=== PATIENT | male | born 1975 | race Caucasian/White ===

== ENCOUNTER 2021-04-09 18:00 | Emergency (ER) | payer BC, SELFPAY ==
[2021-04-09 18:03] VITALS: BP 125/80; PULSE 66; RESP 12; TEMP 36.7; O2SAT 98; BMI 22.4
--- NOTE | 2021-04-09 18:07 | DI.RAD.S_ITS ---
PROCEDURE: XR SHOULDER RT MIN 2V INDICATIONS: fall, concerns of seperation. Swelling/pain TECHNIQUE: 3 views of the shoulder were acquired. COMPARISON: None. FINDINGS: Bones: No acute fractures or dislocations. No suspicious bony lesions. Visualized ribs appear intact. Soft tissues: No suspicious soft tissue calcifications. IMPRESSION: No acute osseous abnormality. If clinical suspicion and/or symptoms persist, additional imaging with repeat plain films, or advanced imaging (e.g. CT, MRI) may be helpful for further assessment. Dictated by: Buddy Edwards M.D. on 04/09/2021 at 18:33 Approved by: Buddy Edwards M.D. on 04/09/2021 at 18:34
--- NOTE | 2021-04-09 19:24 | ED_ITS ---
HPI - Extremity Injury (Upper) General Chief Complaint: Extremity Injury, Upper Stated Complaint: MIGHT OF LEFT SHOULDER Time Seen by Provider: 04/09/21 19:24 Source: patient Mode of arrival: Ambulatory Limitations: no limitations History of Present Illness HPI narrative: This is a 45-year-old male with complaint or concern for possibly injured his right shoulder. Patient was hiking, he tripped and went to protect his left arm which he had a series fracture in the past and fell onto his right shoulder almost directly onto the shoulder itself. He indicates he has pain at the AC joint. He has increased pain with flexion at the shoulder extension is not as uncomfortable and internal external rotation well uncomfortable is not as sick significant as flexion. Patient does not appreciate significant weakness although he is actually more weak on his left upper extremity secondary to his prior injury. He has chronic radiculopathy in both upper extremities prior to chronic neck pain as well as his left forearm injury. Patient has had surgery on his left forearm. He has not had any prior injuries to the right shoulder. Patient states that he does take meloxicam daily. He asks Related Data Home Medications Medication Instructions Recorded Confirmed acetaminophen 650 mg 650 mg PO Q8H PRN tab 12/19/20 12/19/20 tablet,extended release Previous Rx's Medication Instructions Recorded oxycodone 5 mg PO Q6H PRN #10 tab 04/09/21 Allergies Allergy/AdvReac Type Severity Reaction Status Date / Time No Known Drug Allergies Allergy Verified 04/09/21 18:06 Review of Systems Review of Systems ROS Unobtainable: All systems reviewed & are unremarkable except as noted in HPI and below Patient History Social History Smoking Status: Never smoker Smoking Status: Never smoker alcohol intake frequency: a few times a month Substance Use Type: does not use Exam Narrative Exam Narrative: GENERAL: Alert and oriented x three, well-nourished, well- appearing male HEENT: Head normocephalic, atraumatic, EOMI, pupils reactive, face symmetric, moist mucous membranes NECK: Supple, full range of motion CARDIOVASCULAR: Regular rate and rhythm without murmurs, rubs or gallops. RESPIRATORY: Breath sounds equal bilaterally, no wheezes rales or rhonchi. ABDOMEN: Soft, nontender. Normoactive bowel sounds all 4 quadrants. No guarding or rebound, rigidity, no mass : No CVA tenderness EXTREMITIES: Normal range of motion with increase pain at AC joint particularly with flexion. Patient actually has increased muscle mass on his right shoulder and upper extremity in comparison to the left with a large healed incision on his left forearm. no clubbing or edema. Neurovascularly intact. Patient has 2+ pulses bilaterally. He has [employer] meat [employer] stronger on the right compared to the left. As well as portion pull. Patient does not have any other bony tenderness. And has full range of motion in his upper extremities. NEUROLOGICAL: Cranial nerves II through XII grossly intact. Moving all extremities SKIN: Warm, dry, no petechiae, no rashes or lesions. Initial Vital Signs Initial Vital Signs: Vital Signs Temperature 98.0 F 04/09/21 18:03 Pulse Rate 66 04/09/21 18:03 Respiratory Rate 12 04/09/21 18:03 Blood Pressure 125/80 04/09/21 18:03 Pulse Oximetry 98 04/09/21 18:03 Course Orders Ordered: ED Orders 04/09/21 18:07 XR shoulder RT min 2V Stat Vital Signs Vital signs: Vital Signs - 8 hr 04/09/21 18:03 Temperature 98.0 F Pulse Rate 66 Respiratory Rate 12 Blood Pressure 125/80 Pulse Oximetry 98 MDM - Extremity Injury (Upper) Imaging Data Extremity x-ray #1: Radiologist's Impression: [address] [id number] ReportSigned Patient: George Nobles JMR#: [id number]: 1975Acct:[id number]/Sex: 45 / MDate of Service: 04/09/21Loc: EDAccession Number: [id number] Procedure: XR shoulder RT min 2V Ordering Provider: Aliyah Gill D.O. PROCEDURE: XR SHOULDER RT MIN 2V INDICATIONS: fall, concerns of seperation. Swelling/pain TECHNIQUE: 3 views of the shoulder were acquired. COMPARISON: None. FINDINGS: Bones: No acute fractures or dislocations. No suspicious bony lesions. Visualized ribs appear intact. Soft tissues: No suspicious soft tissue calcifications. IMPRESSION: No acute osseous abnormality. If clinical suspicion and/or symptoms persist, additional imaging with repeat plain films, or advanced imaging (e.g. CT, MRI) may be helpful for further assessment. Dictated by: Buddy Edwards M.D. on 04/09/2021 at 18:33 Approved by: Buddy Edwards M.D. on 04/09/2021 at 18:34 [facility] Narrative Medical decision making narrative: This is a 45-year-old male with fall onto his right shoulder with pain at the AC joint. Patient has a negative x-ray we discussed he could have a mild AC joint separation or sprain or possibly ligament or tendon injury or rotator cuff injury. Patient was given a sling in the department but can continue to use regularly. He takes meloxicam daily so given a short course of [place] for pain control as he cannot sleep on his left extremity and will need to sleep more on his right side. He has seen Dr. Garcias in the past and may follow with him but also asks for referral to local [place] orth[facility]. Discharge Plan Departure Patient Disposition: Home Clinical Impression: Injury of right shoulder Qualifiers: Encounter type: initial encounter Qualified Code(s): S49.91XA - Unspecified injury of right shoulder and upper arm, initial encounter Instructions: DI for Shoulder Sprain Activity Restrictions/Additional Instructions: Follow up with Orthopedic surgery for symptoms have not resolved over the next week. Call for an appointment. Continue home medications including meloxicam as prescribed. You may take oxycodone 1 tablet every 6 hours as needed for pain. This medication can make you sleepy do not drive, perform his activities or make any major decisions while taking it. This medication will cause constipation, take a stool softener 1-2 times daily until stools are soft and regular. Prescription to [facility] in [place]. Please return for rapidly worsening or new pain, new weakness, loss of sensation, inability to use your arm, rapidly increasing swelling, redness or warmth or other new or concerning symptoms. Prescriptions: New oxycodone 5 mg tablet 5 mg PO Q6H PRN (Reason: pain) Qty: 10 RF: 0 No Action acetaminophen [Tylenol 8 Hour] 650 mg tablet extended release 650 mg PO Q8H PRN (Reason: pain) RF: 0
== END 2021-04-09 19:53 | disposition home or self-care (01) ==
PROVIDERS: Emergency Provider Emergency Medicine
DX: S49.91XA Unspecified injury of right shoulder and upper arm, initial encounter (principal); W19.XXXA Unspecified fall, initial encounter
CPT/HCPCS: 73030; 99283

== ENCOUNTER → 2022-06-17 14:15 | Outpatient (CLI) | payer BC, SELFPAY | PROVIDERS: Visit Provider Student in an Organized Health Care Education/Training Program | DX: R52 Pain, unspecified (principal) | CPT/HCPCS: 87070; 87075; 87077; 87147; 87205 ==